=== PATIENT | female | born 1980 | race Caucasian/White ===

== ENCOUNTER → 2019-02-26 17:15 | Outpatient (CLI) | payer OTHER, SELFPAY ==
--- NOTE | 2019-02-27 05:15 | EMB_PTH ---
PATIENT: BRITT CORDOVA LOC: [facility] U#:[id number] AGE/SX: 45/F ROOM: RE02/26/[address]: Dr. Holger Roberts MD : 1980 BED: DIS: SPEC #: [id number] RECD: 02/27/19 11:01 STATUS: RETA ROBERT #: [id number] JHOANA: 02/27/19 05:[address]: Holger Roberts DEPT: SURGICAL PATHOLOGY RECD BY: Moe Oscar Tissues: Endometrium, NOS Procedures: Surgery Specimen Level IV HEADER OPERATION: Endometrial biopsy PRE-OP DIAGNOSIS: Abnormal uterine bleeding N93.9 TISSUE SUBMITTED: Endometrial biopsy MICROSCOPIC DIAGNOSIS Endometrial biopsy: Early secretory pattern endometrium with stromal edema and recent stromal hemorrhage. CE:matilda 02/28/19 MICROSCOPIC DESCRIPTION Slides are reviewed. GROSS DESCRIPTION Received in fixative is one container labeled with the patient's name and designated EMB. The specimen consists of multiple irregular fragments of brownish-carter soft tissue that in aggregate measure 2.5 x 2 x 0.2 cm. The specimen is totally submitted in two cassettes. / FA:matilda 02/27/19 TC:5 [facility]: [id number]
[2019-03-07 15:28] LABS: HPV Reflexed? NOT INDICATED
== END ==
PROVIDERS: Visit Provider Obstetrics & Gynecology
DX: Z12.4 Encounter for screening for malignant neoplasm of cervix (principal); N93.9 Abnormal uterine and vaginal bleeding, unspecified
CPT/HCPCS: 87624; 88175; 88305; G0145

== ENCOUNTER → 2019-02-27 11:51 | Outpatient (CLI) | payer OTHER, SELFPAY | PROVIDERS: Referring Provider Obstetrics & Gynecology; Visit Provider Obstetrics & Gynecology | DX: N93.9 Abnormal uterine and vaginal bleeding, unspecified (principal) ==

== ENCOUNTER 2019-03-31 08:23 | Day surgery (SDC) | payer OTHER, SELFPAY ==
[2019-03-26 17:09] LABS: Hematocrit 38.9 % (37-47); Hemoglobin 12.9 g/dL (12.0-15.0); Mean Corp Hgb Conc 33.2 g/dL (32-36); Mean Corpuscular Hgb 28.3 pg (27.0-32.0); Mean Corpuscular Volume 85.3 fL (81-99); Mean Platelet Vol. 10.1 fl (6.2-12.0); Platelet Count 284 K/mm3 (150-450); RBC Distribution Width CV 13.9 % (11.6-14.6); Red Blood Count 4.56 M/mm3 (4.2-5.4); White Blood Count 7.5 K/mm3 (4.4-11.0)
[2019-03-26 17:30] LABS: International Normalized Ratio 1.1; Prothrombin Time (Protime)PT. 14.3 SECONDS (11.7-14.9)
[2019-03-26 17:31] LABS: Partial Thromboplast Time 26.4 Seconds (24.1-36.2)
[2019-03-26 17:51] LABS: Thyroid Stim Hormone (TSH) 1.42 uIU/mL (0.358-3.74)
[2019-03-28 11:13] LABS: Cancer Antigen 125 65.4 U/mL (0.0-38.1)
--- NOTE | 2019-03-30 08:39 | PCM.HP.BLA ---
History and Physical Date of Admission: 03/31/19 Surgical History and Physical Regla Joyce, a 38 year old female 1 2 0 1 4, presents for RAVH/BSO on March 31, 2019. -- Dysmenorrhea and Menorrhagia; Elevated CA-125 -- Regla presents here today with concerns regarding history of passing multiple clots and some of large size for 11 years with her menses. 38 y.o G 3 P 4 non-smoker with history of regular menses and LMP of 02-20-19 lasting her average of 7-8 days. Reports she has had problems with passing a lot of blood clots since she had her BTO with her in 2007 and they have only became worse over the years. Has been on Seasonale for several years to help with menses, and would stop taking for a year or so to get control of my raging hormones, as I would get very angry very easily. Her Mother was diagnosised two months ago with Ovarian Cancer. -- Passing clots with Menses which began 11 years. Regla claims it started while playing; Regla claims it started gradually and has been present worsened in last 5 years. It occurs with menses. It is located in the vagina. It is located in the lower abdomen. Regla characterizes the quality big clots. Severity is moderate and very concerned. Associated signs and symptoms are severe dysmenorrhea and nausea. Associated signs and symptoms are passing grapefruit sized clots. Additional comments are: Mother diagnosised with Ovarian Cancer 2 months ago.; Additional comments are: had a D and C a few years ago but menorrhagia returned. Recent EMBx benign. MEDICATIONS HISTORY: Patient is also takin. Seasonique 0.15 mg-30 mcg (84)/10 mcg(7) tablets,3 month dose pack, One pill by mouth once a day ALLERGIES: No Known Allergies Infections - Chicken pox Illnesses - no serious past illnesses Accidents - None Hospitalizations - see surgery Review of Systems: GENERAL - Denies fever, or chills SKIN - Denies skin changes EYES - Denies visual changes EARS - Denies difficulty hearing NOSE - Denies nasal congestion or bleeding MOUTH - Denies sore throat or difficulty swallowing NECK - Denies pain or swelling RESPIRATORY - Denies shortness of breath or wheezing CARDIOVASCULAR - Denies palpitations or chest pain GASTROINTESTINAL - Denies nausea, vomiting, diarrhea, constipation GENITOURINARY - Denies dysuria, frequency of urination, incontinence of urine MUSCULOSKELETAL - Denies joint or muscle pain NEUROLOGICAL - Denies localized numbness or weakness PSYCHIATRIC - Denies depression or anxiety ENDOCRINE - Denies heat or cold intolerance, weight loss or gain HEMATO-IMMUNOLOGIC - Denies excesive bleeding with cuts SOCIAL HISTORY: Alcohol Use - socially Smoking - Never Diet - no special diet Lifestyle - moderate stress lifestyle and Exercise - regular Seat Belt Use - always 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 Children Name(s) - 4 children Control - Prior Tubal FAMILY HISTORY: MENSTRUAL HISTORY: LMP Known?- DefiniteAmount/Duration - 7 - 8 days, Regularity - Regular, Frequency - every 3 months days, LMP - 02/20/19, Age Onset Menarche - 13 PAST PREGNANCIES: Total Pregnancies - 3; Full Term Pregnancies - 1; Premature - 2; Abortions, Induced - 0; Abortions, Spontaneous - 0; Ectopics - 0; Multiple Births - 1; Living Children - 4 SURGICAL HISTORY: 1. 10/22/2007 and Tubal PHYSICAL EXAM BP- 102/60 Sitting, Right arm, regular cuff Weight- 139.86516 lbs Height- 65 inch BMI:23.18 CONSTITUTIONAL - NAD, well nourished, and well developed SKIN - No rash, lesions, or ulcers HEENT - Normocephalic, PERRLA, EOMI NECK - No nodes, no nuchal rigidity and thyroid normal size and texture LYMPH NODES - Palpation of lymph nodes in neck and groins within normal limits LUNGS - CTA x2 without wheezes, crackles or rales CARDIAC - Regular rate and rhythm without rubs, murmurs, or gallops ABDOMEN - Without hepatosplenomegaly, distention, masses, rebound, or guarding; normal bowel sounds; no hernias EXTREMITIES - No edema or calf tenderness NEUROLOGICAL - Cranial nerves II-XII grossly intact PSYCHIATRIC - A and O to time, place, person, mood and affect External Genitial Vagina - non-tender without lesions Urethra/Urethral Meatus - non-tender Bladder - non-tender Vagina - vaginal philip are pink and moist without loss of rugae and no evidence of atropy Cervix - without cervical motion tenderness and has normal size and features without evident lesions Uterus - multiparous size 6 cm & wt 75-125 g Adnexa - clear without masses or tenderness ASSESSMENT/PLAN: 1. Dysmenorrhea and Menorrhagia; Elevated CA-125 Severe and worsening unresponsive to OCPs, D and C, expectant management over 10 years. Now with elevated CA-125 (65). Had tubal and mother now with ovarian cancer. Discussed options including continuing OCPs vs ablation/BS vs RAVH/BSO. Pt desires proceding with the hysterectomy. Discussed RBAs of surgeries including need for termite technician HRT and possible need for laparotomy and all questions answered.
[2019-03-31] VITALS (18 sets, daily range): BP systolic 82–124; BP diastolic 44–83; PULSE 58–89; RESP 12–18; TEMP 36.4–37.5; O2SAT 96–100; BMI 22.6
--- NOTE | 2019-03-31 | HYST_PTH ---
PATIENT: BRITT CORDOVA LOC: [facility] [place] U#:[id number] AGE/SX: 38/F ROOM: RE03/31/[address]: Dr. Holger Roberts MD : 1980 BED: DIS: 04/01/2019 SPEC #: [id number] RECD: 03/31/19 13:35 STATUS: RETA JONES #: [id number] JHOANA: 03/31/19 00:[address]: Holger Roberts DEPT: SURGICAL PATHOLOGY RECD BY: Kevin Freitas ENTERED: 03/31/19 13:36 SP TYPE: HYSTERECT OTHR DR: Dr. Chau Oliveira MD Tissues: Uterus, NOS Procedures: Surgery Specimen Level V HEADER OPERATION: Robotic assisted vaginal hysterectomy, bilateral salpingo-oophorectomy PRE-OP DIAGNOSIS: Dysmenorrhea and menorrhagia; elevated CA-125 TISSUE SUBMITTED: Uterus, cervix, bilateral fallopian tubes and ovaries MICROSCOPIC DIAGNOSIS Uterus, hysterectomy: Cervix - squamous metaplasia and chronic inflammation. Endometrium - simple cystic hyperplasia without atypia and with focal secretory change. Myometrium - superficial adenomyosis. Right fallopian tube - benign paratubal cyst. Right ovary - corpora albicantia and corpus luteal cyst. Left fallopian tube - no pathologic change. Left ovary - follicular and corporus luteal cyst. AM:deni 04/01/19 COMMENT Case has been reviewed in consultation with Dr. Diallo who concurs with the above diagnosis. IDC:SJ MICROSCOPIC DESCRIPTION Slides are reviewed. GROSS DESCRIPTION Received in fixative is one container labeled with the patient's name and designated uterus. The specimen consists of a uterus with attached cervix and attached right and left fallopian tubes and ovaries. The uterus with cervix measures 9.5 x 6 x 4.2 cm and weighs 100 gm. The ectocervix is oval in contour and free of mass lesions. The endocervical canal measures 3.5 cm in length and is grossly unremarkable. The triangular endometrial cavity measures 4.5 x 3.5 cm. The velvety, light carter endometrium measures up to 0.2 cm in thickness. The myometrium measures 2.5 cm in average thickness and is free of mass lesions. The crinkled, pink-carter right ovary measures 3.2 x 2 x 1.2 cm. Serial sections do not reveal mass lesions. The adjacent right fallopian tube contains a paratubal cyst near the fimbrial end measuring 1.2 cm in greatest dimension. The fimbriated end has a normal villous appearance. The fallopian tube measures 6 x 0.5 cm. A Filshie type clip is intact with no displacement. No tubo-ovarian adhesions are seen. The left ovary is similar in appearance to right and measures 2.6 x 1.6 x 1.2 cm. Serial sections reveal multiple small cysts ranging in size from 0.1 to 0.2 cm. The adjacent fallopian tube is discontinuous in its mid portion and measures 6 cm in length and 0.5 cm in average diameter. Manager Credit Risk sections are submitted in eight cassettes as follows: 1 - anterior cervix, 2??posterior cervix, 3 & 4 - anterior uterine wall, 5 & 6 - posterior uterine wall, 7 - right fallopian tube, ovary and paratubal cyst, 8 - left ovary and left fallopian tube. / AM:matilda 03/31/19 TC: 5 CPT: 56368
[2019-03-31 09:05] LABS: Creatinine, Serum 0.89 mg/dL (0.55-1.02); EST Glomerular Filtration Rate 76 mL/min (>60); Est Glom Filt Rate - Afr Amer 91 mL/min (>60); Estimated Creatinine Clearance 77.12 ml/min
--- NOTE | 2019-03-31 09:39 | PCM.OPRPT ---
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 A 2 x 2 centimeter mass of inflammatory tissue was noted in the posterior cul-de-sac after the hysterectomy was completed. ammonium hydroxide operator: David Benz Type of Anesthesia:: General - Endotracheal Anesthesiologist: Jack Carr Specimen's removed: Uterus and bilateral fallopian tubes and ovaries and inflammatory tissue Drains: Vazquez to straight drain Estimated Blood Loss (mL): Minimal Fluids Replaced: Crystalloid Description of Procedure: Surgeon: Holger Roberts MD, FACOG Indication: This is a 38 year old patient who has been having problems with dysmenorrhea, menorrhagia and an elevated Ca1 25. Patient's mother was diagnosed with ovarian cancer a few years ago. Given this, the patient desires we proceed with the above surgery. The patient has been counseled regarding the risks, benefits and alternatives of this procedure including the possibility of bleeding, infection, and injury to surrounding structures such as bowel bladder and all questions were answered. She understands that if BSO is needed that she will need to be on HRT for an indefinite period of time. Procedure: Pt taken to the operating room where, after induction of general anesthesia, the patient was prepped and draped in the usual sterile fashion and placed on a non-slip Huggy-u-vac device. Tredelenburg test was satisfactory. Bladder was drained of urine with a Vazquez catheter which was left in place. Anterior cervix grasped and cervix was dilated to about 3-4 mm. Uterus sounded to 9 cms. 0-Vicryl suture was placed at the 3:00 and 9:00 position of the cervix. A small Advincula Strike Planning Applications Uterine Manipulator was then placed in the uterus and attention was turned to the laparoscopic portion of the procedure. Ropivocaine 0.5% was injected approximately 1-2 cm superior to the umbilicus and an 8 mm robotic camera port was introduced directly with intraperitoneal placement confirmed with CO2 insufflation. 8 mm robotic side ports were introduced under direct visualization approximately 10 cm lateral and 2 cm inferior to the umbilical port. A 5 mm left upper quadrant port was introduced and airseal insufflation with CO2 was started. The above findings were noted. Robot was docked without difficulty and attention turned to the robotic portion of the procedure. Approximately 30 cc of Ropivicaine was used. Bilateral infundibulocal ligaments/mesosalpinx were ligated with 35 morgan bipolar coagulation to the level of the round ligament. The posterior aspect of the cervix was identified and then opened for about 1 cm using 25 watt monopolar cautery identifying the uterine manipulating device which had been placed vaginally. Bladder flap was opened and divided to the level of the round ligaments using monopolar cautery. Progressive bites were then ligated on each side of the cervix with 35 morgan bipolar cautery to the uterine arteries. The anterior vaginal mucosa was then entered and cervix circumscribed with monopolar cautery. Uterus and attached ovaries and tubes were then removed through the vagina. Vaginal cuff was closed first with 0-Vicryl Yayo stitches placed at each angle followed by closure of the mid-cuff with 0-Monocryl V-lock suture in two layers. Pelvis was copiously irrigated with saline and the right and left ureters were noted to peristalse. A 2 x 2 centimeter mass of inflammatory tissue in the posterior cul-de-sac was removed and sent with the balance of the pathology specimen. Robot was undocked and trocars were removed with as much gas as possible. Incisions were closed with 4-0 Monocryl subcuticular sutures and incisions covered with steri-strips. The patient tolerated the procedure well and was taken to the recovery room in satisfactory condition. Sponge, instruments and needle counts were all correct. There were no apparent complications of the surgery. Cefotan 2 gms IV was given prior to the procedure. Specimen to Pathology: Uterus and bilateral fallopian tubes and ovaries and inflammatory tissue Grafts/Implants Used: None - Complications None - Admit VTE Documentation VTE Present on Admission: Yes VTE Mechan Device Prophylaxis: SCD's VTE Pharm Prophylaxis ordered?: Yes
--- NOTE | 2019-03-31 09:42 | DCINST_ITS ---
Discharge Diet: No Restrictions Discharge Activity: Return to Normal Activity, May Not Drive - while taking narcotic pain medications., May Shower May resume sexual activity in: 6-8 weeks Call your doctor if your incision/area has: Continuous Slow Oozing, Sudden Increased Bleeding, Increased Pain/ Swelling, Increased Redness, Foul Smelling Discharge Call your doctor if you observe: Fever of 101 or Higher, Inability to urinate, Inability to have a bowel movement, Using more than one pad per hour Allergies/Adverse Reactions: Allergies No Known Allergies Allergy (Verified 03/24/19 08:02) Medications to take at Discharge Docusate Sodium [Colace] 100 mg PO BID PRN PRN #60 cap 03/31/19 Estradiol 2 mg PO DAILY #100 tab 03/31/19 Oxycodone [Oxyir] 5 mg PO Q6H PRN PRN 7 Days #20 tab 03/31/19 The following prescriptions were given: Docusate Sodium [Colace] 100 mg PO BID PRN PRN #60 cap PRN Reason: Constipation Prescription Printed Estradiol 2 mg PO DAILY #100 tab Prescription Printed Oxycodone [Oxyir] 5 mg PO Q6H PRN PRN 7 Days #20 tab PRN Reason: Severe Pain (6-06/12) Prescription Printed Primary Care Physician: Chau Oliveira MD [Primary Care Provider] - Test Results: Test results from this visit will be discussed in further detail at your follow- up appointment, if applicable. Please Follow Up With: Holger Roberts MD When: 2 to 3 weeks
[2019-03-31] MEDS: Ropivacaine 0.5% 30 ML Vial (11:10)
[2019-03-31] MEDS: Dextrose 5%-Lactated Ringers 1,000 ML 150 ML IV ×2 (14:59→21:17)
[2019-03-31] MEDS: Ketorolac 30 MG/ML Syringe IV ×2 (16:36→22:37)
[2019-03-31] MEDS: Enoxaparin 30 MG/0.3 ML Syringe SC (18:20)
[2019-03-31] MEDS: 0.9% NaCl Peripheral Flush Adult/Peds IV (22:37)
[2019-04-01 02:37] VITALS: BP 107/69; PULSE 82; RESP 16; TEMP 36.9; O2SAT 100
[2019-04-01 02:43] VITALS: BP 107/71; PULSE 75
[2019-04-01] MEDS: Acetaminophen 500 MG Tablet 1000 MG PO (02:52)
[2019-04-01] MEDS: Dextrose 5%-Lactated Ringers 1,000 ML 150 ML IV (02:53)
[2019-04-01 05:02] VITALS: BP 104/65; PULSE 95
[2019-04-01] MEDS: Ketorolac 30 MG/ML Syringe IV (05:16)
[2019-04-01] MEDS: 0.9% NaCl Peripheral Flush Adult/Peds IV (05:16)
[2019-04-01 06:31] LABS: Hematocrit 33.8 % (37-47); Hemoglobin 11.3 g/dL (12.0-15.0); Mean Corp Hgb Conc 33.4 g/dL (32-36); Mean Corpuscular Hgb 28.5 pg (27.0-32.0); Mean Corpuscular Volume 85.4 fL (81-99); Mean Platelet Vol. 10.6 fl (6.2-12.0); Platelet Count 287 K/mm3 (150-450); RBC Distribution Width CV 13.7 % (11.6-14.6); RBC Distribution Width SD 42.7 fl (35.1-43.9); Red Blood Count 3.96 M/mm3 (4.2-5.4); White Blood Count 15.8 K/mm3 (4.4-11.0)
[2019-04-01 06:55] LABS: Creatinine, Serum 0.93 mg/dL (0.55-1.02); EST Glomerular Filtration Rate 72 mL/min (>60); Est Glom Filt Rate - Afr Amer 87 mL/min (>60)
[2019-04-01 07:45] VITALS: O2SAT 97
--- NOTE | 2019-04-01 08:03 | PCM.PN.OB ---
Subjective: Patient without complaints. Tolerating diet well. Pain well controlled. Positive flatus. Voiding on own. Minimal vaginal bleeding. Ready to go home. - Physical Exam Vital Signs Temp Pulse Resp BP Pulse Ox 98.5 F 95 16 104/65 97 04/01/19 02:37 04/01/19 05:02 04/01/19 02:37 04/01/19 05:02 04/01/19 07:45 Oxygen Flow Rate (L/min) 2 Oxygen Delivery Method Room Air Weight: 135 lb 12.876 oz Body Mass Index (BMI) 22.6 Intake and Output for Last 24 Hours 03/30/19 03/31/19 04/01/19 23:59 23:59 23:59 Intake Total 5038 / 5038 1830 / 1830 Output Total 1700 / 1700 1000 / 1000 Balance 3338 / 3338 830 / 830 Laboratory Tests Past 24 Hrs 03/31/19 04/01/19 04/01/19 08:45 06:04 06:04 WBC 15.8 H RBC 3.96 L Hgb 11.3 L Hct 33.8 L MCV 85.4 MCH 28.5 MCHC 33.4 RDW Std Deviation 42.7 RDW Coeff of Dipika 13.7 Plt Count 287 MPV 10.6 Creatinine 0.89 0.93 Estim Creat Clear Calc 77.12 73.80 Est GFR (MDRD) Af Amer 91 87 Est GFR (MDRD) Non-Af 76 72 Wounds are clean, dry, intact. Good urine output. Hemoglobin and creatinine okay. Medical Necessity - Tobacco Use Smoking Status: Never smoker Assessment/Plan Doing well postoperative day #1 status post robotic assisted vaginal hysterectomy and bilateral salpingo-oophorectomy. Will release to home with routine instructions.
[2019-04-01 08:15] VITALS: BP 99/66; PULSE 90; RESP 18; TEMP 37.1; O2SAT 100
[2019-04-01 09:30] VITALS: BP 106/61; PULSE 96; RESP 16; TEMP 37.3; O2SAT 100
[2019-04-01] MEDS: oxyCODONE 5 MG Tablet PO (09:32)
== END 2019-04-01 11:07 | disposition home or self-care (01) ==
LOC: SDC 08:24 → AC 08:24 → MS3 11:44
PROVIDERS: Family Provider Family Medicine; PCP Family Medicine; Referring Provider Obstetrics & Gynecology; Visit Provider Obstetrics & Gynecology
PROC: 0UT94ZZ Resection of Uterus, Percutaneous Endoscopic Approach (ICD-10-PCS; CPT 58552; principal; 2019-03-31 09:50)
DX: N94.6 Dysmenorrhea, unspecified (principal); N92.0 Excessive and frequent menstruation with regular cycle; N80.3 Endometriosis of pelvic peritoneum; N87.9 Dysplasia of cervix uteri, unspecified; N80.0 Endometriosis of uterus; N83.8 Other noninflammatory disorders of ovary, fallopian tube and broad ligament; N83.291 Other ovarian cyst, right side; N83.11 Corpus luteum cyst of right ovary; N83.12 Corpus luteum cyst of left ovary; N83.02 Follicular cyst of left ovary; R97.1 Elevated cancer antigen 125 [CA 125]; Z80.41 Family history of malignant neoplasm of ovary
CPT/HCPCS: 00840; 58552; S2900; 36415; 82565; 84443; 85027; 85610; 85730; 86304; 86850; 86900; 88307; J7120; A4216; J2405

== ENCOUNTER 2019-04-03 10:44 | Emergency (ER) | payer OTHER, SELFPAY ==
[2019-03-31 14:41] VITALS: BMI 22.6
[2019-04-03 10:46] VITALS: BP 148/91; PULSE 78; RESP 14; TEMP 36.4; O2SAT 100; BMI 22.6
--- NOTE | 2019-04-03 10:47 | NURSING ---
NO OLD EKGS
[2019-04-03 11:13] VITALS: BP 148/91; PULSE 78; RESP 14; TEMP 36.4; O2SAT 100
--- NOTE | 2019-04-03 11:26 | EKG12_ITS ---
Test Reason : Blood Pressure : / mmHG Vent. Rate : 072 BPM Atrial Rate : 072 BPM P-R Int : 120 ms QRS Dur : 078 ms QT Int : 358 ms P-R-T Axes : 059 074 066 degrees QTc Int : 392 ms Normal sinus rhythm Normal ECG Confirmed by MARTHA ESCOBEDO MD ([id number]), scientific publications editor JUAQUIN MEADE ([id number]) on 04/07/2019 1:12:57 PM Referred By: PAPO Confirmed By:MARTHA ESCOBEDO MD
--- NOTE | 2019-04-03 11:33 | RAD_ITS ---
STUDY: X-RAY CHEST REASON FOR EXAM: Female, 38 years old. Chest pain. Recent hysterectomy. TECHNIQUE: Single AP portable view of the chest. COMPARISON: None. FINDINGS: EKG electrodes are seen. The lungs are clear and expanded. There is no demonstrated pleural abnormality. Normal size heart. Normal mediastinum and heydi. Normal visualized pulmonary arteries. Normal visualized aortic arch and descending thoracic aorta. Normal visualized thoracic spine. Normal visualized ribs, clavicles, and shoulders. Small amount of free intraperitoneal air most likely secondary to the recent surgery. RAD/Chest 1 View (Portable) IMPRESSION: Normal x-ray examination of the chest. Small amount of free air beneath the diaphragms. Most likely secondary to recent abdominal surgery. Electronically Signed: Fred Solares, at 12:17 EDT , Service support ,
--- NOTE | 2019-04-03 11:50 | ED.DCSUM_ITS ---
- ER Visit Summary Date of Service: 04/03/19 Chief Complaint: Chest wall pain and chest pain History of Present Illness: The patient is a 38 F no seen past medical history. On Sunday A laparoscopic hysterectomy by Dr. Holger Roberts. A stay in the hospital overnight was discharged on Sunday. States that she had diffuse abdominal chest discomfort in the last 24 hours is become pleuritic on the right side. She has no cardiac history. She is never had a DVT or PE. She denies any hemoptysis. No leg pain or swelling. No calf pain. Physical Examination: Older female no acute distress. Vital signs are stable afebrile. Pulse on room air no hypoxia. HEENT exam unremarkable. Neck nontender. Lungs clear to auscultation bilaterally. Heart regular rate and rhythm no murmur rate about 70. Abdomen soft. Nondistended. She has well- healing laparoscopic incisions are mildly tender normal postop course. No signs of infection. No signs of obstruction. He does have reproducible chest wall tenderness along her ribs. There is no crepitance or subcu air no signs of trauma. Patient moving all 4 extremities. Calves are nontender without edema or cords. Back is nontender. Neurologically she is awake and alert. Test Results: BC normal white count of 5. Hemoglobin 11. Chemistries unremarkable. Troponin normal. D-dimer elevated 3.34. EKG sinus rhythm rate of 72 no acute signs of AK or ischemia. Chest x-ray normal cardiac silhouette. There is free air underneath both diaphragms consistent with her recent laparoscopic surgery. CT of the chest was obtained due to the abnormal d-dimer which was unremarkable. There is small bilateral pleural effusions. There is also postoperative also. Both the chest x-ray and CT were read both by the radiologist and myself. Emergency Department Course and Treatment: Pain postop. Most visibly is postop pain and for the laparoscopic air. She will be given morphine for pain Zofran for nausea. Will undergo cardiac work-up and d-dimer. Clinically I do not think she has a PE. On repeat exam at 1505 and will be discharged home. We did discuss all the test results. Treatment Plan: Continue her pain medications. Plenty of fluids and rest. Follow-up with your RISK AND COMPLIANCE ANALYTICS DIRECTOR Disposition: dc Impression: Chest pain and chest wall pain Status post laparoscopic hysterectomy This note was generated with Dragon dictation software. It may contain incorrect words, spelling, and punctuation that were not noted in review of the chart prior to signing ED Disposition - Plan for ED Patient: Referrals: Chau Oliveira MD [Primary Care Provider] -
[2019-04-03 12:06] LABS: Anion Gap 6 (5-15); BUN 7 mg/dL (7-18); BUN/Creat Ratio 8.6 RATIO (10-20); Chloride 107 mmol/L (98-107); Creatinine, Serum 0.81 mg/dL (0.55-1.02); EST Glomerular Filtration Rate 83 mL/min (>60); Est Glom Filt Rate - Afr Amer 101 mL/min (>60); Estimated Creatinine Clearance 84.74 ml/min; Glucose 99 mg/dL (74-106); Potassium 3.9 mmol/L (3.5-5.1); Sodium Level 141 mmol/L (136-145)
[2019-04-03 12:19] VITALS: BP 143/83; PULSE 67; RESP 18; O2SAT 100
[2019-04-03 12:22] LABS: Absolute Lymphocyte Count 1.44 X10^3/uL (0.83-4.51); Absolute Neutrophil Count 3.2 X10^3/uL (2.0-7.7); Basophil# 0.03 X10^3/uL; Basophil% 0.6 % (0-1); Eosinophil# 0.24 X10^3/uL; Eosinophils% 4.5 % (0-5); Hematocrit 33.8 % (37-47); Hemoglobin 11.1 g/dL (12.0-15.0); Lymphocyte # 1.44 X10^3/ul (4.0); Lymphocyte % 26.9 % (19-41); Mean Corp Hgb Conc 32.8 g/dL (32-36); Mean Corpuscular Volume 85.4 fL (81-99); Mean Platelet Vol. 11.4 fl (6.2-12.0); Monocyte# 0.43 X10^3/uL; NRBC Flagged by Analyzer 0 % (0-5); Neutrophil # 3.19 X10^3/uL (2.7-7.7); Neutrophil % 59.4 % (47-70); Platelet Count 240 K/mm3 (150-450); RBC Distribution Width CV 13.8 % (11.6-14.6); RBC Distribution Width SD 43.3 fl (35.1-43.9); Red Blood Count 3.96 M/mm3 (4.2-5.4); White Blood Count 5.4 K/mm3 (4.4-11.0)
[2019-04-03 12:29] LABS: D-Dimer Quantitative (DVT/PE) 3.34 FEU/ug/m (0.27-0.49)
--- NOTE | 2019-04-03 12:31 | CT_ITS ---
STUDY: CTA CHEST REASON FOR EXAM: Female, 38 years old. Chest pain. Recent hysterectomy. RADIATION DOSAGE (If Supplied By Facility): CTDIvol = ( 10.50 ) mGy, DLP = ( 2295.30 ) mGycm TECHNIQUE: The examination was performed with the intravenous administration of 75ML IV Isovue 370. Post-processing of the angiographic images was performed, with multiplanar reformation and 3D reconstruction. Individualized dose optimization techniques were used for this CT. COMPARISON: Comparison is made with prior chest radiograph done earlier in the day. FINDINGS: Small benign-appearing bilateral axillary lymph nodes. Normal enhancement of the main pulmonary artery and right and left pulmonary arteries. Normal enhancement of the bilateral peripheral pulmonary arteries. There is no demonstrated pulmonary embolism. Normal thoracic aorta and visualized great vessels. There is no demonstrated aortic dissection. Normal heart and pericardium. Normal mediastinum. Normal hilar regions. Normal visualized trachea and bronchi. The lungs are well expanded. Small bilateral pleural effusions with underlying atelectasis. This is worse on the left side. Normal pleura. Normal chest wall structures. Normal osseous structures. Small amount of free intraperitoneal air most likely secondary to the recent CT/CTA Chest W/WO Contrast IMPRESSION: Small bilateral effusions with bibasilar atelectasis. Small amount of free air is seen within the upper abdomen is likely secondary to prior surgery. Electronically Signed: Fred Solares, at 14:34 EDT , Service support ,
[2019-04-03] MEDS: MethylPREDNISolone 125 MG/2 ML Vial IV (13:04)
[2019-04-03] MEDS: DiphenhydrAMINE 50 MG/ML Syringe 25 MG IV (13:05)
[2019-04-03] MEDS: HYDROcodone Bitartrate/Apap 5/325 Tablet PO (13:06)
[2019-04-03 14:21] VITALS: BP 123/79; PULSE 73; RESP 18
--- NOTE | 2019-04-03 15:07 | ED.DEP ---
ED Disposition - Plan for ED Patient: Disposition: Home or Assisted Living Instructions: CHEST PAIN, NonCardiac Referrals: Chau Oliveira MD [Primary Care Provider] - As Needed Holger Roberts MD [STAFF PHYSICIAN] - As Needed Additional Instructions: Your work-up is negative. Follow-up with Dr. Holger Roberts as scheduled and needed as her postop appointments. Continue pain medication and Motrin for pain and inflammation.
[2019-04-03 15:12] VITALS: BP 116/74; PULSE 71; RESP 18
== END 2019-04-03 15:23 | disposition home or self-care (01) ==
PROVIDERS: Emergency Provider Emergency Medicine; Family Provider Family Medicine; PCP Family Medicine
DX: R07.89 Other chest pain (principal); Z90.710 Acquired absence of both cervix and uterus
CPT/HCPCS: 71045; 71275; 80048; 84484; 85025; 85379; 93005; 96374; 96375; 99285; Q9967; A4216; J2405